=== PATIENT | female | born 1950 | race Caucasian/White ===

== ENCOUNTER 2016-10-26 07:33 | Day surgery (SDC) | payer MEDICARE, MEDICAID ==
[~2016-10-26] VITALS: Ht 162.6 cm; Wt 106.6 kg
[~2016-10-26 07:33] MED LIST: ACET1TAB12 PO; ALBU18HF INH; ASPI500T8 PO; CHOL100045 PO; CIPR-231 PO; DOCU-41 PO; DOCU240C41 PO; ENOX40DI8 SUBQ; FLUT15.88 NS; FLUT9.9S NS; HYDR-3797 PO; KLO5T PO; LEVO25TA5 PO; LISI-606 PO; METH-313 PO; METR750T PO; NITR0.4T SL; OMEP20CA11 PO; OXYC5TAB72 PO; PRAM0.5T3 PO
[2016-10-26] MEDS ORDERED: fentaNYL-PF 50 mCg/mL 2 mL Inj ONE (07:34)
[2016-10-26] MEDS ORDERED: Ketamine 10 mg/mL 20 mL Inj ONE (07:34)
[2016-10-26] MEDS ORDERED: Lactated Ringer's 1,000 ML IV ONE (07:44)
[2016-10-26 08:01] VITALS: BP 103/69; PULSE 80; O2SAT 96
[2016-10-26] MEDS ORDERED: Ondansetron 2 mg/mL 2 mL Inj IVPUSH PRN (08:20)
[2016-10-26] MEDS ORDERED: MetoCLOpramide 5 mg/mL 2 mL Inj IVPUSH PRN (08:20)
[2016-10-26] MEDS ORDERED: Lactated Ringer's 1,000 ML IV SCH (08:20)
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
[2016-10-26 09:04] VITALS: BP 97/72; PULSE 66; RESP 16; O2SAT 94
[2016-10-26 09:14] VITALS: BP 100/63; PULSE 62; RESP 16; O2SAT 94
--- NOTE | 2016-10-26 09:16 | ENDO ---
[address] [address] ENDOSCOPY PROCEDURE PATIENT: FER FREEMAN : 1950 MR#: [id number] ADMIT: 10/26/2016 JOB ID: [id number] DATE: 10/26/2016 PROCEDURE: Colonoscopy. INDICATION: A patient with a history of diverticulitis. The patient's ASA classification, Mallampati score and medications as per Dr. Heri Chávez's anesthesia report. INSTRUMENT USED: PCF H 180 AL. PREPARATION QUALITY: Was fair. PROCEDURE DETAILS: After informed consent was obtained, the patient was brought into the GI suite, where she was placed on oxygen via nasal cannula and monitored with continuous pulse oximeter, telemetry and blood pressure monitoring. A time-out was performed. Then, she was placed in the left lateral decubitus position and medications were administered for sedation. Digital rectal examination was performed and was unremarkable. The colonoscope was then inserted into the rectum and advanced under direct visualization to the cecum, which was identified by the presence of the ileocecal valve and appendiceal orifice. Once the cecum was reached, the colonoscope was withdrawn back into the rectum as the mucosa and lumen were examined. In the rectum, retroflexion was performed. Following retroflexion, remaining air in the rectum was suctioned, and the procedure was completed. FINDINGS: 1. There was an approximately 4 mm sessile polyp in the proximal transverse colon that was removed with a cold snare. 2. Scattered diverticula were seen throughout the sigmoid colon. 3. Retroflexed views in the rectum revealed small internal hemorrhoids. IMPRESSION: 1. Proximal transverse colon polyp. 2. Sigmoid diverticulosis. 3. Small internal hemorrhoids. RECOMMENDATIONS: 1. Fiber rich diet. 2. Followup in GI clinic as needed. COMPLICATIONS: None. ESTIMATED BLOOD LOSS: Less than 5 mL.
[2016-10-26 09:22] VITALS: BP 98/64; PULSE 55; RESP 16; O2SAT 95
--- NOTE | 2016-10-26 14:04 | PCM.ANEP1 ---
Post Anesthesia Phase 1 PACU Phase 1 Assessment Vital Signs Vital Signs Date Time Temp Pulse Resp B/P Pulse Ox O2 Delivery O2 Flow Rate FiO2 10/26/16 09:22 55 16 98/64 95 Room Air 10/26/16 09:14 62 16 100/63 94 Room Air 10/26/16 09:04 66 16 97/72 94 Room Air 10/26/16 08:01 36.0 80 103/69 96 Room Air Anesthetic Administered: MAC Level of Alertness: Awake, talking TAVERAS's with Equal Strength: Yes Pain: No Oxygen Delivery: Nasal Cannula Lungs: Clear to Auscultation, Normal Air Movement Dermatome Level: Full Sensation Heri Chávez MD Oct 26, 2016 14:04
--- NOTE | 2016-10-26 14:05 | PCM.ANEP2 ---
Post Anesthesia Evaluation ASA/CMS Post Anesthesia VS in Patient's Normal Range?: Yes Resp Stable; Airway Patent?: Yes CV Function & Hydration Stable: Yes Mental Status Recovered?: Yes Pain control Satisfactory?: Yes N/V Control Satisfactory?: Yes Heri Chávez MD Oct 26, 2016 14:05
--- NOTE | 2016-10-27 15:07 | PATH ---
SURGICAL PATHOLOGY Attending Physician:Manny Flores CASE STATUS: Signed Out PATIENT NAME: FER FREEMAN PID: [id number] : 1950 DATE COLLECTED:10/26/2016 15:50 SPECIMEN: Colon, Biopsy CLINICAL HISTORY: A: PROXIMAL TRANSVERSE COLON POLYP FINAL DIAGNOSIS: 1.PROXIMAL TRANSVERSE COLON POLYP: TUBULAR ADENOMA. ICD10 CODE D12.3 GROSS DESCRIPTION: The specimen is received in one formalin filled container labeled with the patient's name, sublabeled "proximal transverse colon polyp" and consists of 2 portions of tissue which aggregate to 0.5 x 0.3 x 0.2 CM. The specimen is entirely submitted in one cassette. 10/26/2016 [facility] MICRO DESCRIPTION: See diagnosis. ICD-9 CODES: CPT CODES: 1: 58712 Electronically Signed Out Justa Huerta MD [facility] Pathology [facility] [address], [place] [address] Technical component performed at [facility], [facility] [address], [place], [address]
== END 2016-10-26 23:59 | disposition home or self-care (01) ==
LOC: END 07:33
PROVIDERS: ATTEND Internal Medicine Gastroenterology
DX: D12.3 Benign neoplasm of transverse colon (principal); K57.30 Diverticulosis of large intestine without perforation or abscess without bleeding; K64.8 Other hemorrhoids; I35.1 Nonrheumatic aortic (valve) insufficiency; I71.2 Thoracic aortic aneurysm, without rupture; I10 Essential (primary) hypertension; I25.10 Atherosclerotic heart disease of native coronary artery without angina pectoris; Z79.82 Long term (current) use of aspirin; Z87.891 Personal history of nicotine dependence
CPT/HCPCS: 45385; 88305; J7120